=== PATIENT | female | born 1980 | race Caucasian/White ===

== ENCOUNTER 2018-10-02 08:34 | Emergency (ER) | payer MEDICAID | END 2018-10-02 09:23 | disposition home or self-care (01) | LOC: E/R 08:34 | DX: L03.116 Cellulitis of left lower limb (principal) | CPT/HCPCS: 99283; Z7502 ==

== ENCOUNTER 2018-10-05 16:01 | Emergency (ER) | payer MEDICAID ==
[2018-10-06] MEDS: HYDROCODONE/APAP (5/325) TAB PO (00:20)
[2018-10-06] MEDS: LIDOCAINE 2% (MDV) 20 ML INJ INJ (00:20)
== END 2018-10-06 01:37 | disposition home or self-care (01) ==
LOC: FTE 10-06 01:37
DX: L02.416 Cutaneous abscess of left lower limb (principal)
CPT/HCPCS: 10060; 99283-25

== ENCOUNTER 2018-10-08 09:50 | Emergency (ER) | payer MEDICAID ==
[2018-10-08] MEDS: HYDROCODONE/APAP (7.5/325) TAB PO (12:23)
== END 2018-10-08 12:31 | disposition home or self-care (01) ==
LOC: FTE 09:50
DX: L03.116 Cellulitis of left lower limb (principal)
CPT/HCPCS: 99283; Z7502

== ENCOUNTER 2018-12-17 17:14 | Emergency (ER) | payer MEDICAID ==
[2018-12-17] MEDS: DIPHENHYDRAMINE 50 MG INJ IV (19:44)
[2018-12-17] MEDS: METOCLOPRAMIDE 10 MG INJ IV (19:44)
[2018-12-17] MEDS: KETOROLAC 15 MG INJ IV (19:46)
[2018-12-17] MEDS: SOD CHLORIDE 0.9% 1,000 ML IV (20:18)
== END 2018-12-17 21:18 | disposition home or self-care (01) ==
LOC: FTE 17:14
DX: R51 Headache (principal)
CPT/HCPCS: 81025; 96374; 96375; 99284-25